=== PATIENT | male | born 1955 | race Caucasian/White ===

== ENCOUNTER 2017-05-09 10:19 | Observation (INO) | payer MEDICAID ==
[2017-05-09] MEDS ORDERED: Aspirin 325 MG Tab PO ONE (10:24)
[2017-05-09] MEDS ORDERED: Sodium Chloride 0.9% 10 ML Syringe FLUSH PRN ×2 (10:24→12:10)
[2017-05-09] MEDS ORDERED: Sodium Chloride 0.9% 2.5 ML Syringe FLUSH PRN ×2 (10:24→12:10)
--- NOTE | 2017-05-09 10:39 | EDM.PDOC ---
ED HPI GENERAL MEDICAL PROBLEM - General Chief Complaint: Neurological Problem Stated Complaint: MEMORY LOSS AND LT SHOULDER HURTS Time Seen by Provider: 05/09/17 10:35 Source of Information: Reports: Patient History Limitations: Reports: No Limitations - History of Present Illness INITIAL COMMENTS - FREE TEXT/NARRATIVE: HISTORY AND PHYSICAL: []61-year-old male presenting, brought in to ER by his boss, with alteration in his mental status History of Present Illness: []Yesterday and today patient has not been acting appropriately forgetful does not remember today's events Review of Systems: As per history of present illness and below otherwise all systems reviewed and negative. Past medical history: As per history of present illness and as reviewed below otherwise noncontributory. Surgical history: As per history of present illness and as reviewed below otherwise noncontributory. Social history: No reported history of drug or alcohol abuse. Family history: As per history of present illness and as reviewed below otherwise noncontributory. Physical exam: Alert gentleman answering questions somewhat difficultyshortness of breath HEENT: Atraumatic, normocehpalic, pupils reactive, negative for conjunctival pallor or scleral icterus, mucous membranes moist, throat clear, neck supple, nontender, trachea midline. Lungs: Clear to auscultation, breath sounds equal bilaterally, chest non tender. Heart: S1S2, regular, negative for clicks, rubs, or JVD. Abdomen: Soft, nondistended, nontender. Negative for masses or hepatossplenmegaly. Negative for costovertebral tenderness. Pelvis: Stable nontender. Genitourinary: Deferred. Rectal: Deferred Extremities: Atraumatic, negative for cords or calf pain. Neurovascular unremarkable. Neuro: Awake, alert, unable to state what day today is what day of the week it is or what month it is. He is able to follow directions. motor skills intact. Cranial nerves II through XII unremarkable. Cerebellum unremarkable. Motor and sensory unremarkable throughout. Exam nonfocal. Patient has his supervisor winding department from work here/he went to check on this worker today and had to help him sit up and brought him to emergency department for evaluation. Elevated CK and C-reactive protein Dr. Quigley has examined the patient and is in agreement with observation Dr. Angel has been notified of this patient for observation staus on telemetry Diagnostics: [CT head without CBC CMP chest x-ray EKG ammonia level urine drug screen] Therapeutics: []Aspirin 325 one by mouth Impression: [Altered mental status Rhabdomyolysis Plan: []Referred for observation /telemetry Definitive disposition and diagnosis as appropriate pending reevaluation and review of above. Onset: Sudden Duration: Day(s): (2) Location: Reports: Head left shoulder Pain Score (Numeric/FACES): 7 - Related Data Allergies Allergy/AdvReac Type Severity Reaction Status Date / Time No Known Allergies Allergy Verified 05/09/17 10:25 Home Meds: Home Meds Methylphenidate HCl [Ritalin] 10 mg PO TID 05/09/17 [History] Zaleplon [Sonata] 10 mg PO BEDTIME PRN 05/09/17 [History] Past Medical History Psychiatric History: Reports: ADHD - Past Surgical History Musculoskeletal Surgical History: Reports: Other (See Below) Other Musculoskeletal Surgeries/Procedures:: knee surgery Social & Family History - Family History Family Medical History: Noncontributory - Tobacco Use Smoking Status *Q: Current Every Day Smoker Years of Tobacco use: 20 Packs/Tins Daily: 0.5 - Alcohol Use Days Per Week of Alcohol Use: 7 Number of Drinks Per Day: 2 Total Drinks Per Week: 14 - Recreational Drug Use Recreational Drug Use: No ED ROS GENERAL - Review of Systems Review Of Systems: ROS reveals no pertinent complaints other than HPI. - Physical Exam Exam: See Below (see dictation) Course - Vital Signs Last Recorded V/S: Last Vital Signs Temp 36.8 C 05/09/17 10:26 Pulse 94 05/09/17 10:26 Resp 20 05/09/17 10:26 BP 153/106 H 05/09/17 10:26 Pulse Ox 95 05/09/17 10:26 - Orders/Labs/Meds Orders: Active Orders 24 hr Category Date Time Status Assess Neurological Status [RC] ASDIRECTED Care 05/09/17 10:24 Active Bedrest [RC] ASDIRECTED Care 05/09/17 10:24 Active Blood Glucose Check, Bedside [RC] STAT Care 05/09/17 10:24 Active Cardiac Monitoring [RC] . DIRECTED Care 05/09/17 10:24 Active EKG Documentation Completion [RC] STAT Care 05/09/17 10:24 Active EKG Documentation Completion [RC] STAT Care 05/09/17 10:35 Inactive Height and Weight [RC] UPON Care 05/09/17 10:24 Active Initiate Acute Stroke Protocol [RC] STAT Care 05/09/17 10:24 Active NIH Stroke Scale [RC] ASDIRECTED Care 05/09/17 10:24 Active Nursing Bedside Swallow Screen [RC] ASDIRECTED Care 05/09/17 10:24 Active Oxygen Therapy [RC] ASDIRECTED Care 05/09/17 10:24 Active Stroke Education, General [RC] Click to Edit Care 05/09/17 10:24 Active Vital Signs [RC] Q15M Care 05/09/17 10:24 Active ETOH [ETHANOL BLOOD MEDICAL] [CHEM] Stat Lab 05/09/17 12:03 Ordered Sodium Chloride 0.9% [Normal Saline] 1,000 ml Med 05/09/17 10:24 Active IV NOW Sodium Chloride 0.9% [Saline Flush] Med 05/09/17 10:24 Active 10 ml FLUSH ASDIRECTED PRN Sodium Chloride 0.9% [Saline Flush] Med 05/09/17 10:24 Active 2.5 ml FLUSH ASDIRECTED PRN Peripheral IV Insertion Adult [OM.PC] Stat Oth 05/09/17 10:24 Ordered Peripheral IV Insertion Adult [OM.PC] Stat Oth 05/09/17 10:24 Ordered Resuscitation Status Stat Resus Stat 05/09/17 10:24 Ordered Medication Orders Sodium Chloride (Normal Saline) 1,000 mls @ 125 mls/hr IV NOW STA Stop: 05/09/17 18:23 Last Infusion: 05/09/17 11:53 Dose: 999 mls/hr Admin: 05/09/17 10:56 Dose: 125 mls/hr Sodium Chloride (Saline Flush) 10 ml FLUSH ASDIRECTED PRN PRN Reason: Keep Vein Open Last Admin: 05/09/17 10:57 Dose: 10 ml Sodium Chloride (Saline Flush) 2.5 ml FLUSH ASDIRECTED PRN PRN Reason: Keep Vein Open Last Admin: 05/09/17 10:57 Dose: 2.5 ml Labs: Laboratory Tests 05/09/17 05/09/17 05/09/17 Range/Units 10:24 10:24 10:24 WBC 13.05 H (4.0-11.0) K/uL RBC 4.92 (4.50-5.90) M/uL Hgb 16.9 (13.0-17.0) g/dL Hct 46.9 (38.0-50.0) % MCV 95.3 (80.0-98.0) fL MCH 34.3 H (27.0-32.0) pg MCHC 36.0 (31.0-37.0) g/dL RDW Std Deviation 45.5 (28.0-62.0) fl RDW Coeff of [place] 13 (11.0-15.0) % Plt Count 167 (150-400) K/uL MPV 9.40 (7.40-12.00) fL Neut % (Auto) 81.8 H (48.0-80.0) % Lymph % (Auto) 8.8 L (16.0-40.0) % Phillips % (Auto) 9.2 (0.0-15.0) % Eos % (Auto) 0.1 (0.0-7.0) % Baso % (Auto) 0.1 (0.0-1.5) % Neut # (Auto) 10.7 H (1.4-5.7) K/uL Lymph # (Auto) 1.2 (0.6-2.4) K/uL Phillips # (Auto) 1.2 H (0.0-0.8) K/uL Eos # (Auto) 0.0 (0.0-0.7) K/uL Baso # (Auto) 0.0 (0.0-0.1) K/uL Nucleated RBC % 0.0 /100WBC Nucleated RBCs # 0 K/uL ESR (0-19) mm/hr INR 1.05 (0.86-1.11) APTT 31.5 H (18.6-31.3) SEC Sodium 133 L (136-146) mmol/L Potassium 4.3 (3.5-5.1) mmol/L Chloride 98 (98-110) mmol/L Carbon Dioxide 23 (21-31) mmol/L BUN 9 (6.0-23.0) mg/dL Creatinine 1.0 (0.6-1.5) mg/dL Est Cr Clr Drug Dosing 88.78 mL/min Estimated GFR (MDRD) > 60.0 ml/min Glucose 127 H (60-110) mg/dL POC Glucose (60-110) mg/dL Calcium 9.3 (8.8-10.8) mg/dL Total Bilirubin 1.9 H (0.1-1.5) mg/dL AST 118 H (5-40) IU/L ALT 61 H (8-54) IU/L Alkaline Phosphatase 76 (40-150) Ammonia (14-68) UG/DL Creatine Kinase 5412 H (9-236) IU/L CK-MB (CK-2) 39.5 H (0-6.6) ng/ml Troponin I < 0.10 (0.0-0.29) NG/ML C-Reactive Protein 9.54 H (0.0-0.5) mg/dL Total Protein 8.1 H (6.0-8.0) g/dL Albumin 4.8 (3.4-4.8) g/dL Globulin 3.3 (2.0-3.5) g/dL Albumin/Globulin Ratio 1.5 (1.3-2.8) TSH 3rd Generation 1.86 (0.47-5.0) uIU/mL Urine Color Urine Appearance Urine pH (5.0-8.0) Ur Specific [place] (1.001-1.035) Urine Protein (NEGATIVE) mg/dL Urine Glucose (UA) (NEGATIVE) mg/dL Urine Ketones (NEGATIVE) mg/dL Urine Occult Blood (NEGATIVE) Urine Nitrite (NEGATIVE) Urine Bilirubin (NEGATIVE) Urine Ictotest Urine Urobilinogen (<2.0) EU/dL Ur Leukocyte Esterase (NEGATIVE) Urine RBC (0-2/HPF) Urine WBC (0-5/HPF) Ur Epithelial Cells (NONE-FEW) Urine Bacteria (NEGATIVE) Urine Opiates Screen (NEGATIVE) Ur Oxycodone Screen (NEGATIVE) Urine Methadone Screen (NEGATIVE) Ur Barbiturates Screen (NEGATIVE) Ur Phencyclidine Scrn (NEGATIVE) Ur Amphetamine Screen (NEGATIVE) U Methamphetamines Scrn (NEGATIVE) U Benzodiazepines Scrn (NEGATIVE) U Cocaine Metab Screen (NEGATIVE) U Marijuana (THC) Screen (NEGATIVE) 05/09/17 05/09/17 05/09/17 Range/Units 10:24 10:24 10:44 WBC (4.0-11.0) K/uL RBC (4.50-5.90) M/uL Hgb (13.0-17.0) g/dL Hct (38.0-50.0) % MCV (80.0-98.0) fL MCH (27.0-32.0) pg MCHC (31.0-37.0) g/dL RDW Std Deviation (28.0-62.0) fl RDW Coeff of [place] (11.0-15.0) % Plt Count (150-400) K/uL MPV (7.40-12.00) fL Neut % (Auto) (48.0-80.0) % Lymph % (Auto) (16.0-40.0) % Phillips % (Auto) (0.0-15.0) % Eos % (Auto) (0.0-7.0) % Baso % (Auto) (0.0-1.5) % Neut # (Auto) (1.4-5.7) K/uL Lymph # (Auto) (0.6-2.4) K/uL Phillips # (Auto) (0.0-0.8) K/uL Eos # (Auto) (0.0-0.7) K/uL Baso # (Auto) (0.0-0.1) K/uL Nucleated RBC % /100WBC Nucleated RBCs # K/uL ESR 3 (0-19) mm/hr INR (0.86-1.11) APTT (18.6-31.3) SEC Sodium (136-146) mmol/L Potassium (3.5-5.1) mmol/L Chloride (98-110) mmol/L Carbon Dioxide (21-31) mmol/L BUN (6.0-23.0) mg/dL Creatinine (0.6-1.5) mg/dL Est Cr Clr Drug Dosing mL/min Estimated GFR (MDRD) ml/min Glucose (60-110) mg/dL POC Glucose 118 H (60-110) mg/dL Calcium (8.8-10.8) mg/dL Total Bilirubin (0.1-1.5) mg/dL AST (5-40) IU/L ALT (8-54) IU/L Alkaline Phosphatase (40-150) Ammonia 65 (14-68) UG/DL Creatine Kinase (9-236) IU/L CK-MB (CK-2) (0-6.6) ng/ml Troponin I (0.0-0.29) NG/ML C-Reactive Protein (0.0-0.5) mg/dL Total Protein (6.0-8.0) g/dL Albumin (3.4-4.8) g/dL Globulin (2.0-3.5) g/dL Albumin/Globulin Ratio (1.3-2.8) TSH 3rd Generation (0.47-5.0) uIU/mL Urine Color Urine Appearance Urine pH (5.0-8.0) Ur Specific [place] (1.001-1.035) Urine Protein (NEGATIVE) mg/dL Urine Glucose (UA) (NEGATIVE) mg/dL Urine Ketones (NEGATIVE) mg/dL Urine Occult Blood (NEGATIVE) Urine Nitrite (NEGATIVE) Urine Bilirubin (NEGATIVE) Urine Ictotest Urine Urobilinogen (<2.0) EU/dL Ur Leukocyte Esterase (NEGATIVE) Urine RBC (0-2/HPF) Urine WBC (0-5/HPF) Ur Epithelial Cells (NONE-FEW) Urine Bacteria (NEGATIVE) Urine Opiates Screen (NEGATIVE) Ur Oxycodone Screen (NEGATIVE) Urine Methadone Screen (NEGATIVE) Ur Barbiturates Screen (NEGATIVE) Ur Phencyclidine Scrn (NEGATIVE) Ur Amphetamine Screen (NEGATIVE) U Methamphetamines Scrn (NEGATIVE) U Benzodiazepines Scrn (NEGATIVE) U Cocaine Metab Screen (NEGATIVE) U Marijuana (THC) Screen (NEGATIVE) 05/09/17 05/09/17 Range/Units 11:09 11:09 WBC (4.0-11.0) K/uL RBC (4.50-5.90) M/uL Hgb (13.0-17.0) g/dL Hct (38.0-50.0) % MCV (80.0-98.0) fL MCH (27.0-32.0) pg MCHC (31.0-37.0) g/dL RDW Std Deviation (28.0-62.0) fl RDW Coeff of [place] (11.0-15.0) % Plt Count (150-400) K/uL MPV (7.40-12.00) fL Neut % (Auto) (48.0-80.0) % Lymph % (Auto) (16.0-40.0) % Phillips % (Auto) (0.0-15.0) % Eos % (Auto) (0.0-7.0) % Baso % (Auto) (0.0-1.5) % Neut # (Auto) (1.4-5.7) K/uL Lymph # (Auto) (0.6-2.4) K/uL Phillips # (Auto) (0.0-0.8) K/uL Eos # (Auto) (0.0-0.7) K/uL Baso # (Auto) (0.0-0.1) K/uL Nucleated RBC % /100WBC Nucleated RBCs # K/uL ESR (0-19) mm/hr INR (0.86-1.11) APTT (18.6-31.3) SEC Sodium (136-146) mmol/L Potassium (3.5-5.1) mmol/L Chloride (98-110) mmol/L Carbon Dioxide (21-31) mmol/L BUN (6.0-23.0) mg/dL Creatinine (0.6-1.5) mg/dL Est Cr Clr Drug Dosing mL/min Estimated GFR (MDRD) ml/min Glucose (60-110) mg/dL POC Glucose (60-110) mg/dL Calcium (8.8-10.8) mg/dL Total Bilirubin (0.1-1.5) mg/dL AST (5-40) IU/L ALT (8-54) IU/L Alkaline Phosphatase (40-150) Ammonia (14-68) UG/DL Creatine Kinase (9-236) IU/L CK-MB (CK-2) (0-6.6) ng/ml Troponin I (0.0-0.29) NG/ML C-Reactive Protein (0.0-0.5) mg/dL Total Protein (6.0-8.0) g/dL Albumin (3.4-4.8) g/dL Globulin (2.0-3.5) g/dL Albumin/Globulin Ratio (1.3-2.8) TSH 3rd Generation (0.47-5.0) uIU/mL Urine Color YELLOW Urine Appearance CLEAR Urine pH 6.0 (5.0-8.0) Ur Specific [place] >= 1.030 (1.001-1.035) Urine Protein TRACE (NEGATIVE) mg/dL Urine Glucose (UA) NEGATIVE (NEGATIVE) mg/dL Urine Ketones TRACE H (NEGATIVE) mg/dL Urine Occult Blood MODERATE (NEGATIVE) Urine Nitrite NEGATIVE (NEGATIVE) Urine Bilirubin SMALL H (NEGATIVE) Urine Ictotest NEGATIVE Urine Urobilinogen 1.0 (<2.0) EU/dL Ur Leukocyte Esterase NEGATIVE (NEGATIVE) Urine RBC 0-1 (0-2/HPF) Urine WBC 0-1 (0-5/HPF) Ur Epithelial Cells RARE (NONE-FEW) Urine Bacteria RARE (NEGATIVE) Urine Opiates Screen NEGATIVE (NEGATIVE) Ur Oxycodone Screen NEGATIVE (NEGATIVE) Urine Methadone Screen NEGATIVE (NEGATIVE) Ur Barbiturates Screen NEGATIVE (NEGATIVE) Ur Phencyclidine Scrn NEGATIVE (NEGATIVE) Ur Amphetamine Screen NEGATIVE (NEGATIVE) U Methamphetamines Scrn NEGATIVE (NEGATIVE) U Benzodiazepines Scrn NEGATIVE (NEGATIVE) U Cocaine Metab Screen NEGATIVE (NEGATIVE) U Marijuana (THC) Screen NEGATIVE (NEGATIVE) Meds: Medications Generic Name Dose Route Start Last Admin Trade Name Freq PRN Reason Stop Dose Admin Sodium Chloride 1,000 mls @ 125 mls/hr 05/09/17 10:24 05/09/17 11:53 Normal Saline IV 05/09/17 18:23 999 mls/hr NOW STA Infusion Sodium Chloride 10 ml 05/09/17 10:24 05/09/17 10:57 Saline Flush FLUSH 10 ml ASDIRECTED PRN Administration Keep Vein Open Sodium Chloride 2.5 ml 05/09/17 10:24 05/09/17 10:57 Saline Flush FLUSH 2.5 ml ASDIRECTED PRN Administration Keep Vein Open Discontinued Medications Generic Name Dose Route Start Last Admin Trade Name Freq PRN Reason Stop Dose Admin Aspirin 325 mg 05/09/17 10:24 05/09/17 10:57 Aspirin PO 05/09/17 10:25 325 mg ONETIME ONE Administration Departure - Departure Time of Disposition: 12:05 Disposition: Refer to Observation Condition: Fair Clinical Impression: Rhabdomyolysis - Discharge Information Forms: ED Department Discharge - My Orders Last 24 Hours: My Active Orders 05/09/17 10:24 Assess Neurological Status [RC] ASDIRECTED Bedrest [RC] ASDIRECTED Blood Glucose Check, Bedside [RC] STAT Cardiac Monitoring [RC] . DIRECTED EKG Documentation Completion [RC] STAT Height and Weight [RC] UPON Initiate Acute Stroke Protocol [RC] STAT NIH Stroke Scale [RC] ASDIRECTED Nursing Bedside Swallow Screen [RC] ASDIRECTED Oxygen Therapy [RC] ASDIRECTED Stroke Education, General [RC] Click to Edit Vital Signs [RC] Q15M Sodium Chloride 0.9% [Normal Saline] 1,000 ml IV NOW Sodium Chloride 0.9% [Saline Flush] 10 ml FLUSH ASDIRECTED PRN Sodium Chloride 0.9% [Saline Flush] 2.5 ml FLUSH ASDIRECTED PRN Peripheral IV Insertion Adult [OM.PC] Stat Peripheral IV Insertion Adult [OM.PC] Stat Resuscitation Status Stat 05/09/17 10:35 EKG Documentation Completion [RC] STAT 05/09/17 12:03 ETOH [ETHANOL BLOOD MEDICAL] [CHEM] Stat - Assessment/Plan Last 24 Hours: My Active Orders 05/09/17 10:24 Assess Neurological Status [RC] ASDIRECTED Bedrest [RC] ASDIRECTED Blood Glucose Check, Bedside [RC] STAT Cardiac Monitoring [RC] . DIRECTED EKG Documentation Completion [RC] STAT Height and Weight [RC] UPON Initiate Acute Stroke Protocol [RC] STAT NIH Stroke Scale [RC] ASDIRECTED Nursing Bedside Swallow Screen [RC] ASDIRECTED Oxygen Therapy [RC] ASDIRECTED Stroke Education, General [RC] Click to Edit Vital Signs [RC] Q15M Sodium Chloride 0.9% [Normal Saline] 1,000 ml IV NOW Sodium Chloride 0.9% [Saline Flush] 10 ml FLUSH ASDIRECTED PRN Sodium Chloride 0.9% [Saline Flush] 2.5 ml FLUSH ASDIRECTED PRN Peripheral IV Insertion Adult [OM.PC] Stat Peripheral IV Insertion Adult [OM.PC] Stat Resuscitation Status Stat 05/09/17 10:35 EKG Documentation Completion [RC] STAT 05/09/17 12:03 ETOH [ETHANOL BLOOD MEDICAL] [CHEM] Stat
--- NOTE | 2017-05-09 10:52 | CT ---
EXAMINATION: Non contrast CT head. Coronal and sagittal reformats. HISTORY: Stroke code FINDINGS: No evidence of intra or extra axial hemorrhage, mass, midline shift, hydrocephalus or edema. No hypoattenuation changes in the major vascular territories to suggest acute infarct. No abnormal intracranial calcifications are detected. No evidence of substantial vascular calcificat ions. Moderate mucosal thickening within the right maxillary sinus. Mastoid air cells are clear. Orbits and globes are symmetric. Pituitary fossa appears unremarkable. The calvarium is intact. No evidence of skull fracture. IMPRESSION: 1. No acute intracranial findings. 2. Mucosal thickening within the right maxillary sinus. Above findings were called to the ER at 10:50 AM.
[2017-05-09] MEDS: Sodium Chloride 0.9% 1,000 ML IV STA ×2 (10:56→19:06)
[2017-05-09 11:06] LABS: CHLORIDE,CL 98 mmol/L (98-110); SODIUM,NA 133 mmol/L (136-146)
--- NOTE | 2017-05-09 11:51 | CR ---
EXAMINATION: Left shoulder HISTORY: Pain COMPARISON: None TECHNIQUE: 3 views FINDINGS/IMPRESSION: There is a posterior dislocation of the humeral head with a large reverse Hill S achs lesion. Bone mineralization is otherwise normal. Mild to moderate acromioclavicular osteoarthrit ic changes.
--- NOTE | 2017-05-09 11:56 | CR ---
EXAMINATION: Portable chest radiograph. HISTORY: Stroke code. FINDINGS: The trachea is midline. The cardiomediastinal silhouette is within normal limits. Minimal left basila r atelectasis/infiltrate. No pleural effusion or pneumothorax. Please see shoulder report for findings. IMPRESSION: Minimal left basilar atelectasis/infiltrate.
--- NOTE | 2017-05-09 14:23 | PCM.HP ---
H&P History of Present Illness - General Date of Service: 05/09/17 Admit Problem/Dx: Admission Diagnosis/Problem Admission Diagnosis/Problem Altered mental status Source of Information: Patient, Other (boss at work) History Limitations: Reports: No Limitations - History of Present Illness Initial Comments - Free Text/Narative: This is a 61 year old male with a past history of ADHD that presents today to the ER with a chief complaint of confusion. As per the patient, he tells me that for the past 2 days his friends have been telling him that he has been having memory issues and showing signs of confusion. He tells me that he lives in [place] and has drove up to [place] to work at an [employer] for the past few days. He tells me that for the last few days he has been getting minimal sleep and its been a taxing job for him with long hours. He is unaware of what may be causing his confusion. He tells me hes never had anything like this before. When I evaluated him in the ER, he told me that he feels much better now than he did the past couple of days. I asked if I could speak to one of his co- workers who could provide more of his story and he gave me his phone to speak to his boss, Fausto. As per Fausto, he tells me that since yesterday morning at around 6AM, Nigel has been having difficulty at work in terms of getting his work done on time. He was also supposed to come to work but didn't. He tells me that his co-worker, Arturo, noticed at around 10pm that the patient was complaining of feeling weak and needed help getting up out of his seat. Today around 6am, he was reported by his coworkers to have no idea who anyone was and why he was there. Talking to the patient now, he is awake, alert, and oriented and answering all questions appropriately. Hes complaining of left shoulder pain which shoulder x- ray indicated a posterior dislocation. The shoulder was reduced by ER physician and put in a sling. After this, patient said that his shoulder has felt much better. When asked about how this could have happened, he tells me he has had left shoulder pain for over 6 months that he attributed to playing sports at a younger age. He didnt realize it was dislocated. I also noticed that the patient has an obviously red and irritated left eye. When asked about this, he is unaware of how this happened. However, he denies any blurry vision or pain. ER Course: CBC - leukocytosis PTT - 31.5 Sodium - 133 Glucose 118 AST 118 ALT 61 CK 5412 CKB 39.5 CRP 9.5 Ketonuria negative drug tox, negative alcohol CT Head negative CXR indicates minimal left basilar atelectasis/infiltrate left shoulder Pain Score (Numeric/FACES): 7 - Related Data Allergies/Adverse Reactions: Allergies Allergy/AdvReac Type Severity Reaction Status Date / Time No Known Allergies Allergy Verified 05/09/17 10:25 Home Medications: Home Meds Methylphenidate HCl [Ritalin] 10 mg PO TID 05/09/17 [History] Zaleplon [Sonata] 10 mg PO BEDTIME PRN 05/09/17 [History] Past Medical History Psychiatric History: Reports: ADHD - Past Surgical History Musculoskeletal Surgical History: Reports: Other (See Below) Other Musculoskeletal Surgeries/Procedures:: knee surgery Social & Family History - Family History Family Medical History: Noncontributory - Tobacco Use Smoking Status *Q: Current Every Day Smoker Years of Tobacco use: 20 Packs/Tins Daily: 0.5 - Alcohol Use Days Per Week of Alcohol Use: 7 Number of Drinks Per Day: 2 Total Drinks Per Week: 14 - Recreational Drug Use Recreational Drug Use: No H&P Review of Systems - Review of Systems: Review Of Systems: See Below General: Reports: Weakness HEENT: Reports: No Symptoms Pulmonary: Reports: No Symptoms Cardiovascular: Reports: No Symptoms Gastrointestinal: Reports: No Symptoms Genitourinary: Reports: No Symptoms Musculoskeletal: Reports: Shoulder Pain Skin: Reports: No Symptoms Psychiatric: Reports: Confusion Neurological: Reports: Confusion. Denies: Dizziness, Headache, Seizure, Syncope , Tingling, Tremors, Trouble Speaking, Difficulty Walking, Weakness Exam - Exam Exam: See Below - Vital Signs Vital Signs: Last Vital Signs Temp 36.6 C 05/09/17 13:35 Pulse 91 05/09/17 13:35 Resp 18 05/09/17 13:35 BP 139/82 05/09/17 13:35 Pulse Ox 97 05/09/17 13:35 Weight: 102.058 kg - Exam Quality Assessment: Supplemental Oxygen General: Alert, Oriented HEENT: Hearing Intact, Mucosa Moist & [place], Nares Patent, TMs Clear, Glasses, Other (left eye conjunctival injection with no drainage. fundoscopic exam reveals no papilledema EOMI) Neck: Supple, Trachea Midline Lungs: Clear to Auscultation, Normal Respiratory Effort Cardiovascular: Regular Rate, Regular Rhythm GI/Abdominal Exam: Normal Bowel Sounds, Soft Back Exam: Normal Inspection, Full Range of Motion, CVA Tenderness (L), CVA Tenderness (R). No: Vertebral Tenderness Extremities: Normal Inspection, Normal Range of Motion, Non-Tender, No Pedal Edema Peripheral Pulses: 3+: Posterior Tibial (L), Posterior Tibial (R) Skin: Warm, Dry Neurological: Cranial Nerves Intact Neuro Extensive - Mental Status: Alert, Oriented x3, Normal Mood/Affect, Normal Cognition, Memory Intact Neuro Extensive - Motor, Sensory, Reflexes: CN II-XII Intact, Normal Gait, Normal Reflexes. No: Tongue Deviation (L), Tongue Deviation (R), Dysarthria, Receptive Aphasia, Expressive Aphasia, Facial palsy (L), Abnormal Finger to Nose , Abnormal Heel to [place] Psychiatric: Alert, Normal Affect, Normal Mood - Patient Data Result Diagrams: 05/09/17 10:24 05/09/17 10:24 *Q Meaningful Use (ADM) - VTE *Q VTE Criteria *Q: - Stroke *Q Stroke Criteria *Q: - AMI *Q AMI Criteria *Q: Problem List Initiated/Reviewed/Updated: Yes Orders Last 24hrs: Active Orders 24 hr Category Date Time Status Antiembolic Devices [RC] PER UNIT ROUTINE Care 05/09/17 14:11 Active Oxygen Therapy [RC] PRN Care 05/09/17 14:09 Active Up ad Destinee [RC] ASDIRECTED Care 05/09/17 14:08 Active VTE/DVT Education [RC] PER UNIT ROUTINE Care 05/09/17 14:09 Active Vital Signs [RC] Q4H Care 05/09/17 14:09 Active Regular Diet [DIET] Diet 05/09/17 Dinner Active Abdomen Ltd [US] Routine Exams 05/09/17 14:11 Ordered BASIC METABOLIC PANEL,BMP [CHEM] AM Lab 05/10/17 05:11 Ordered C-REACTIVE PROTEIN [CHEM] AM Lab 05/10/17 05:11 Ordered CBC WITH AUTO DIFF [HEME] AM Lab 05/10/17 05:11 Ordered CREATINE KINASE,CK [CHEM] AM Lab 05/10/17 05:11 Ordered HEPATITIS PANEL, ACUTE [REF] Routine Lab 05/09/17 14:12 Ordered Sequential Compression Device [OM.PC] Per Unit Routine Oth 05/09/17 14:10 Ordered Medication Orders Sodium Chloride (Normal Saline) 1,000 mls @ 175 mls/hr IV NOW STA Stop: 05/09/17 16:06 Last Infusion: 05/09/17 11:53 Dose: 999 mls/hr Admin: 05/09/17 10:56 Dose: 125 mls/hr Sodium Chloride (Saline Flush) 10 ml FLUSH ASDIRECTED PRN PRN Reason: Keep Vein Open Last Admin: 05/09/17 10:57 Dose: 10 ml Sodium Chloride (Saline Flush) 2.5 ml FLUSH ASDIRECTED PRN PRN Reason: Keep Vein Open Last Admin: 05/09/17 10:57 Dose: 2.5 ml Sodium Chloride (Saline Flush) 10 ml FLUSH ASDIRECTED PRN PRN Reason: Keep Vein Open Sodium Chloride (Saline Flush) 2.5 ml FLUSH ASDIRECTED PRN PRN Reason: Keep Vein Open Assessment/Plan Comment:: Assessment: #1. Altered mental status #2. Rhabdomyolysis #3. Elevated LFT #4. Mild leukocytosis #5. mild hyponatremia #6. elevated CRP #7. Elevated CK-MB #8. ketonuria #9. negative drug tox Plan: #1. Admit to the floor as an inpatient. Vital signs per floor routine. Full code #2. IVNS 250ml/hr for rhabdomyolysis. Q6h CK check to see the down trend. #3. RUQ US + Hepatitis Panel for transaminitis #4. IV Levaquin for community acquired pneumonia #5. MRI brain w/ contrast to rule out ischemia #6. Cbc, bmp, crp for tomorrow Am
[2017-05-09] MEDS ORDERED: Sodium Chloride 0.9% 250 ML IV SCH (15:00)
[2017-05-09] MEDS: Levofloxacin/Dextrose 5%-Water 750 MG in Premix Bag 1 BAG IV SCH (15:13)
--- NOTE | 2017-05-09 15:55 | PCM.CONS ---
H&P History of Present Illness - General Admit Problem/Dx: Admission Diagnosis/Problem Admission Diagnosis/Problem Altered mental status - History of Present Illness Initial Comments - Free Text/Narative: He was noted to be confused by coworkers. He was brought to ED by his boss because he has been confused for the last 2 days. He then missed a day of work. In the ED, he was not oriented to place or time. He does not recall missing a day of work. He reports that he has been under stress as he worked 6 weeks straight, senior talent management consultant , had 3 days off at home in [place] then came here. When asked about shoulder, he said it has been out for a year. He does not know what happened to his left eye. He recalls no trauma. He is a smoker. He drinks 3-4 drinks / night when days off, non during work days. CT head 05/09/2017 normal Labs CRP 9.54, AST 118, ALT 61, bili 1.9, WBC 13.05, TSH normal, UA trace ketones, small bilirubin, Utox negative, Na 133 CXR showed left lobe atelectasis vs. infiltrate left shoulder Pain Score (Numeric/FACES): 7 - Related Data Allergies/Adverse Reactions: Allergies Allergy/AdvReac Type Severity Reaction Status Date / Time No Known Allergies Allergy Verified 05/09/17 10:25 Home Medications: Home Meds Methylphenidate HCl [Ritalin] 10 mg PO TID 05/09/17 [History] Zaleplon [Sonata] 10 mg PO BEDTIME PRN 05/09/17 [History] Past Medical History HEENT History: Reports: None Cardiovascular History: Reports: None Respiratory History: Reports: Asthma, Bronchitis, Recurrent, Pneumonia, Recurrent, Sleep Apnea Gastrointestinal History: Reports: None Genitourinary History: Reports: None Musculoskeletal History: Reports: Fracture Other Musculoskeletal History: Fractured collar bone Neurological History: Reports: None Psychiatric History: Reports: ADHD Endocrine/Metabolic History: Reports: None Hematologic History: Reports: None Immunologic History: Reports: None Oncologic (Cancer) History: Reports: None Dermatologic History: Reports: None - Infectious Disease History Infectious Disease History: Reports: Chicken Pox, Influenza - Past Surgical History Musculoskeletal Surgical History: Reports: Other (See Below) Other Musculoskeletal Surgeries/Procedures:: knee surgery Social & Family History - Family History Family Medical History: Noncontributory - Tobacco Use Smoking Status *Q: Current Every Day Smoker Years of Tobacco use: 20 Packs/Tins Daily: 0.5 Used Tobacco, but Quit: No Second Hand Smoke Exposure: Yes - Caffeine Use Caffeine Use: Reports: Coffee - Alcohol Use Days Per Week of Alcohol Use: 7 Number of Drinks Per Day: 2 Total Drinks Per Week: 14 Date of Last Drink: 05/09/17 Time of Last Drink: 16:00 - Recreational Drug Use Recreational Drug Use: No H&P Review of Systems - Review of Systems: Review Of Systems: See Below General: Reports: No Symptoms HEENT: Reports: No Symptoms Pulmonary: Reports: No Symptoms Cardiovascular: Reports: No Symptoms Gastrointestinal: Reports: No Symptoms Genitourinary: Reports: No Symptoms Musculoskeletal: Reports: Arm Pain Neurological: Reports: Confusion Exam - Exam Exam: See Below - Vital Signs Vital Signs: Last Vital Signs Temp 36.6 C 05/09/17 13:35 Pulse 91 05/09/17 13:35 Resp 18 05/09/17 13:35 BP 139/82 05/09/17 13:35 Pulse Ox 97 05/09/17 13:35 Weight: 102.058 kg - Exam Physical Exam Comments:: Constitutional: No acute distress Neurological: Mental Status: Level of consciousness: Awake, alert. Orientation: Oriented to person, place, year and situation Concentration/Attention Span: Spells World forward and back wards Comprehension/Praxis: Able to perform two step commands Fund of Knowledge/memory: Reg 3/3, recall 0/3 Language: Naming and repetition intact Cranial Nerves: Pupils round reactive to light. . . Visual camejo intact. Gaze conjugate, EOMI. Sensation intact and symmetric to light touch. Facial strength is full and symmetric. Palate elevates symmetrically. Normal shrug bilaterally. Tongue protrudes midline Motor: No drift. Power is 5/5 throughout proximal and distal muscles except left proximal limb not tested. . Sensation: Sensation is intact to pinprick, vibratory sense Deep tendon reflexes: 2+ except ankle jerks trace Plantar responses are flexor bilaterally. Coordination: Finger to nose intact. Heel to jolley intact. Gait: Took 3-4 steps (hindered by IV), stable HEENT: Eyes: hemorrhage left eye, mild bruising inferior to orbit. Mouth: moist mucus membranes Cardiovascular: RRR Respiratory: clear lungs GI: non tender Musculoskeletal: left shoulder tender - Patient Data Lab Results Last 24 hrs: Laboratory Results - last 24 hr 05/09/17 Range/Units 14:30 Creatine Kinase 4623 H (9-236) IU/L Result Diagrams: 05/09/17 10:24 05/09/17 10:24 Consult PN Assessment/Plan Problem List Initiated/Reviewed/Updated: Yes My Orders Last 24 Hours: Altered mental status: Work up notable for mild leukocytosis, possible pneumonia , transaminitis. Altered mental status likely infectious / toxic metabolic. No focal deficits noted to suggest ischemia, but mental status does not improve , MRI brain may be considered. No seizure activity reported. No headache, nuchal rigidity to suggest [employer] infection Elevated CK / rhabdomyolisis: Possible related to dislocated shoulder. I agree with fluids and trending CK.
[2017-05-09] MEDS ORDERED: LORazepam 1 MG Tab PO ONE (18:04)
[2017-05-09] MEDS ORDERED: Sodium Chloride 0.9% 1,000 ML IV SCH (18:30)
[2017-05-09] MEDS ORDERED: Gadobenate Dimeglumine 529 MG/ML 20 ML SDV IVPUSH STA (21:19)
[2017-05-10] MEDS: Sodium Chloride 0.9% 1,000 ML IV SCH ×6 (02:14→23:33)
[2017-05-10 03:32] LABS: CHLORIDE,CL 108 mmol/L (98-110); SODIUM,NA 137 mmol/L (136-146)
[2017-05-10] MEDS ORDERED: Calcium Carbonate 500 MG Tab.Chew PO ONE (07:15)
--- NOTE | 2017-05-10 09:46 | PCM.PN ---
- General Info Date of Service: 05/10/17 Subjective Update: Alert and oriented x3 this am. Would like to go home but secondary to MRI finding will need more imaging. Eating and eliminating without difficulty. No chest pain, palpitations, shortness of breath, nausea, vomiting, diarrhea, focal neurologic deficits. Functional Status: Reports: Pain Controlled, Tolerating Diet - Review of Systems General: Denies: Fever, Weakness, Fatigue HEENT: Denies: Headaches, Visual Changes Pulmonary: Denies: Shortness of Breath, Hemoptysis Cardiovascular: Denies: Chest Pain, Palpitations, Edema Gastrointestinal: Denies: Abdominal Pain, Nausea, Vomiting Genitourinary: Denies: Dysuria, Hematuria Musculoskeletal: Denies: Neck Pain, Leg Pain Skin: Denies: Cyanosis Neurological: Denies: Confusion, Dizziness, Headache Psychiatric: Denies: Confusion - Patient Data Vitals - Most Recent: Last Vital Signs Temp 98.3 F 05/10/17 08:20 Pulse 84 05/10/17 08:20 Resp 84 H 05/10/17 08:20 BP 128/87 05/10/17 08:20 Pulse Ox 20 L 05/10/17 08:20 Weight - Most Recent: 102.058 kg I&O - Last 24 Hours: Intake & Output 05/09/17 05/10/17 05/10/17 22:59 06:59 14:59 Intake Total 400 2250 Balance 400 2250 Lab Results Last 24 Hours: Laboratory Results - last 24 hr 05/09/17 05/09/17 05/10/17 Range/Units 14:30 21:43 02:59 WBC 10.20 (4.0-11.0) K/uL RBC 4.22 L (4.50-5.90) M/uL Hgb 14.2 (13.0-17.0) g/dL Hct 40.7 (38.0-50.0) % MCV 96.4 (80.0-98.0) fL MCH 33.6 H (27.0-32.0) pg MCHC 34.9 (31.0-37.0) g/dL RDW Std Deviation 46.7 (28.0-62.0) fl RDW Coeff of [place] 14 (11.0-15.0) % Plt Count 145 L (150-400) K/uL MPV 9.40 (7.40-12.00) fL Neut % (Auto) 74.0 (48.0-80.0) % Lymph % (Auto) 13.1 L (16.0-40.0) % Cass % (Auto) 12.7 (0.0-15.0) % Eos % (Auto) 0.1 (0.0-7.0) % Baso % (Auto) 0.1 (0.0-1.5) % Neut # (Auto) 7.5 H (1.4-5.7) K/uL Lymph # (Auto) 1.3 (0.6-2.4) K/uL Cass # (Auto) 1.3 H (0.0-0.8) K/uL Eos # (Auto) 0.0 (0.0-0.7) K/uL Baso # (Auto) 0.0 (0.0-0.1) K/uL Nucleated RBC % 0.0 /100WBC Nucleated RBCs # 0 K/uL Sodium (136-146) mmol/L Potassium (3.5-5.1) mmol/L Chloride (98-110) mmol/L Carbon Dioxide (21-31) mmol/L BUN (6.0-23.0) mg/dL Creatinine (0.6-1.5) mg/dL Est Cr Clr Drug Dosing mL/min Estimated GFR (MDRD) ml/min Glucose (60-110) mg/dL Calcium (8.8-10.8) mg/dL Creatine Kinase 4623 H 3689 H (9-236) IU/L C-Reactive Protein (0.0-0.5) mg/dL 05/10/17 05/10/17 Range/Units 02:59 02:59 WBC (4.0-11.0) K/uL RBC (4.50-5.90) M/uL Hgb (13.0-17.0) g/dL Hct (38.0-50.0) % MCV (80.0-98.0) fL MCH (27.0-32.0) pg MCHC (31.0-37.0) g/dL RDW Std Deviation (28.0-62.0) fl RDW Coeff of [place] (11.0-15.0) % Plt Count (150-400) K/uL MPV (7.40-12.00) fL Neut % (Auto) (48.0-80.0) % Lymph % (Auto) (16.0-40.0) % Cass % (Auto) (0.0-15.0) % Eos % (Auto) (0.0-7.0) % Baso % (Auto) (0.0-1.5) % Neut # (Auto) (1.4-5.7) K/uL Lymph # (Auto) (0.6-2.4) K/uL Cass # (Auto) (0.0-0.8) K/uL Eos # (Auto) (0.0-0.7) K/uL Baso # (Auto) (0.0-0.1) K/uL Nucleated RBC % /100WBC Nucleated RBCs # K/uL Sodium 137 (136-146) mmol/L Potassium 4.0 (3.5-5.1) mmol/L Chloride 108 (98-110) mmol/L Carbon Dioxide 20 L (21-31) mmol/L BUN 10 (6.0-23.0) mg/dL Creatinine 0.8 (0.6-1.5) mg/dL Est Cr Clr Drug Dosing 110.97 mL/min Estimated GFR (MDRD) > 60.0 ml/min Glucose 111 H (60-110) mg/dL Calcium 8.0 L (8.8-10.8) mg/dL Creatine Kinase 3113 H (9-236) IU/L C-Reactive Protein 13.08 H (0.0-0.5) mg/dL Med Orders - Current: Current Medications Levofloxacin/Dextrose 750 mg/ (Premix) 150 mls @ 100 mls/hr IV Q24H [facility] Last Admin: 05/09/17 15:13 Dose: 100 mls/hr Sodium Chloride (Normal Saline) 1,000 mls @ 250 mls/hr IV ASDIRECTED BE Last Admin: 05/10/17 05:42 Dose: 250 mls/hr Methylphenidate 10mg 1 each PO TID BE Last Admin: 05/10/17 08:51 Dose: Not Given Sodium Chloride (Saline Flush) 10 ml FLUSH ASDIRECTED PRN PRN Reason: Keep Vein Open Last Admin: 05/09/17 10:57 Dose: 10 ml Sodium Chloride (Saline Flush) 2.5 ml FLUSH ASDIRECTED PRN PRN Reason: Keep Vein Open Last Admin: 05/09/17 10:57 Dose: 2.5 ml Sodium Chloride (Saline Flush) 10 ml FLUSH ASDIRECTED PRN PRN Reason: Keep Vein Open Sodium Chloride (Saline Flush) 2.5 ml FLUSH ASDIRECTED PRN PRN Reason: Keep Vein Open Zaleplon (Sonata) 10 mg PO BEDTIME PRN PRN Reason: Insomnia Discontinued Medications Aspirin (Aspirin) 325 mg PO ONETIME ONE Stop: 05/09/17 10:25 Last Admin: 05/09/17 10:57 Dose: 325 mg Calcium Carbonate/Glycine (Tums) 1,000 mg PO ONETIME ONE Stop: 05/10/17 07:16 Last Admin: 05/10/17 08:07 Dose: 1,000 mg Gadobenate Dimeglumine (Multihance) 20 ml IVPUSH ONETIME STA Stop: 05/09/17 21:20 Last Admin: 05/09/17 21:20 Dose: 14 ml Sodium Chloride (Normal Saline) 1,000 mls @ 250 mls/hr IV NOW STA Stop: 05/09/17 14:23 Last Admin: 05/09/17 19:06 Dose: 999 mls/hr Sodium Chloride (Normal Saline) 250 mls @ 250 mls/hr IV ASDIRECTED BE Last Admin: 05/09/17 15:13 Dose: 250 mls/hr Sodium Chloride (Normal Saline) 1,000 mls @ 250 mls/hr IV ASDIRECTED BE Lorazepam (Ativan) 1 mg PO ONETIME ONE Stop: 05/09/17 18:05 Last Admin: 05/09/17 19:14 Dose: 1 mg - Exam Quality Assessment: DVT Prophylaxis General: Alert, Oriented, Cooperative, No Acute Distress HEENT: Pupils Equal, Pupils Reactive, EOMI, Mucous Membr. Moist/[place] Neck: Supple, Trachea Midline Lungs: Clear to Auscultation, Normal Respiratory Effort Cardiovascular: Regular Rate, Regular Rhythm, Murmurs GI/Abdominal Exam: Normal Bowel Sounds, Soft, Non-Tender, No Organomegaly Back Exam: Normal Inspection Extremities: Normal Inspection, Non-Tender, No Pedal Edema, Normal Capillary Refill Peripheral Pulses: 2+: Radial (L), Radial (R), Posterior Tibial (L), Posterior Tibial (R), Dorsalis Pedis (L), Dorsalis Pedis (R) Skin: Warm, Dry, Intact Neurological: No New Focal Deficit Psy/Mental Status: Alert, Normal Affect, Normal Mood - Problem List & Annotations (1) Altered mental status SNOMED Code(s): 812230216 Code(s): R41.82 - ALTERED MENTAL STATUS, UNSPECIFIED Status: Resolved Current Visit: Yes Qualifiers: Altered mental status type: disorientation Qualified Code(s): R41.0 - Disorientation, unspecified (2) Rhabdomyolysis SNOMED Code(s): 471018973 Code(s): M62.82 - RHABDOMYOLYSIS Status: Acute Priority: High Current Visit: Yes Qualifiers: Rhabdomyolysis type: traumatic Encounter type: subsequent encounter Qualified Code(s): T79.6XXD - Traumatic ischemia of muscle, subsequent encounter (3) Dislocation of left shoulder joint SNOMED Code(s): 219580785 Code(s): S43.005A - UNSPECIFIED DISLOCATION OF LEFT SHOULDER JOINT, INIT ENCNTR Status: Resolved Priority: Low Current Visit: Yes Qualifiers: Encounter type: subsequent encounter Qualified Code(s): S43.005D - Unspecified dislocation of left shoulder joint, subsequent encounter (4) CAP (community acquired pneumonia) SNOMED Code(s): 514210377 Code(s): J18.9 - PNEUMONIA, UNSPECIFIED ORGANISM Status: Suspected Priority: High Current Visit: Yes Qualifiers: Laterality: left Lung location: lower lobe of lung Qualified Code(s): J18.1 - Lobar pneumonia, unspecified organism - Problem List Review Problem List Initiated/Reviewed/Updated: Yes - My Orders Last 24 Hours: My Active Orders 05/09/17 12:25 Telemetry Monitoring [Cardiac Monitoring] [RC] . DIRECTED 05/09/17 20:38 Zaleplon [Sonata] 10 mg PO BEDTIME PRN 05/09/17 22:00 Patient's Own Medication [Ptom] 1 each PO TID 05/10/17 01:30 Sodium Chloride 0.9% [Normal Saline] 1,000 ml IV ASDIRECTED 05/10/17 07:19 VL Duplex Carotid Comp [US] Routine 05/10/17 08:51 CREATINE KINASE,CK [CHEM] Routine 05/10/17 15:00 CREATINE KINASE,CK [CHEM] Routine - Plan Plan:: 7-year-old male admitted 05/09/17 for altered mental status found to have rhabdomyolysis and leukocytosis with no significant past medical history. AMS: Dr. Olivera, neurologist, did see patient. See her note for further details. 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 There was also moderate right maxillary sinus mucosal thickening. Secondary to these findings we will get a carotid ultrasound as well as echocardiogram to search for possible embolic source. AMS seems to have improved but patient does have ecchymosis under the left eye with hyperemic injection to that eye as if he sustained trauma which he denies. He does admit to drinking but not on a regular basis. Negative drug tox screen. Plan to monitor mental status as well as get above exams. Will need follow-up with neurology. Rhabdomyolysis: Improving CK 3000 this a.m. down from 4623 most likely from previously dislocated shoulder. Will continue IVF resus at 250 ml/hr and monitor. Leukocytosis/CAP: Resolved but Left basilar infiltrate on CXR representing suspected community acquired pneumonia. We'll continue levofloxacin 750 mg day 2. Elevated LFTs: Most likely secondary to fatty liver from EtOH. Improving with IVF resus. Ultrasound right upper quadrant revealed increased echogenicity of the liver parenchyma, likely related to fatty infiltration. Patient is status post cholecystectomy, there was suboptimal visualization of the pancreas, presumably related bowel gas. VTE proph: SCD, Heparin Dispo: 1-2 days.
[2017-05-10] MEDS: Heparin Sodium 5,000 Units/ML Vial SUBCUT SCH ×2 (10:57→17:07)
[2017-05-10] MEDS: Levofloxacin/Dextrose 5%-Water 750 MG in Premix Bag 1 BAG IV SCH (15:46)
[2017-05-10] MEDS ORDERED: Acetaminophen/HYDROcodone 325-5 MG Tab PO PRN (18:53)
[2017-05-10] MEDS ORDERED: Acetaminophen 325 MG Tab PO PRN (18:53)
[2017-05-11] MEDS: Heparin Sodium 5,000 Units/ML Vial SUBCUT SCH ×2 (02:17→12:10)
[2017-05-11] MEDS: Sodium Chloride 0.9% 1,000 ML IV SCH ×2 (04:02→08:21)
--- NOTE | 2017-05-11 06:59 | PCM.DCSUM1 ---
Discharge Summary - Hospital Course HPI Initial Comments: 61-year-old male admitted 05/09/17 for altered mental status found to have rhabdomyolysis and leukocytosis with no significant past medical history. Brief History: Patient intially was brought to the ED by coworkers that stated that he was disorientated on the morning of admission and did not even know his own name. They state that he had seemed confused for the last 2 days and then had missed a day of work. Initially in the ED he was not oriented to place or time. He also did not remember missing a day of work. When questioned he reported that for the past 2 days his friends had been telling him that he was having memory issues and showing signs of confusion. He lives in [place] and has drove up to [place] to work at an [employer] for the past few days. The last few days he has been getting minimal sleep and its been a taxing job for him with long hours. He was unaware of what may be causing his confusion and reported that nothing like this had happened before to him. - Discharge Data Discharge Date: 05/11/17 Discharge Disposition: Home, Self-Care 01 Condition: Good - Discharge Diagnosis/Problem(s) (1) Altered mental status SNOMED Code(s): 655223092 ICD Code: R41.82 - ALTERED MENTAL STATUS, UNSPECIFIED Status: Resolved Current Visit: Yes Qualifiers: Altered mental status type: disorientation Qualified Code(s): R41.0 - Disorientation, unspecified (2) Rhabdomyolysis SNOMED Code(s): 388595712 ICD Code: M62.82 - RHABDOMYOLYSIS Status: Resolved Priority: High Current Visit: Yes Qualifiers: Rhabdomyolysis type: traumatic Encounter type: subsequent encounter Qualified Code(s): T79.6XXD - Traumatic ischemia of muscle, subsequent encounter (3) Dislocation of left shoulder joint SNOMED Code(s): 147754958 ICD Code: S43.005A - UNSPECIFIED DISLOCATION OF LEFT SHOULDER JOINT, INIT ENCNTR Status: Resolved Priority: Low Current Visit: Yes Qualifiers: Encounter type: subsequent encounter Qualified Code(s): S43.005D - Unspecified dislocation of left shoulder joint, subsequent encounter (4) CAP (community acquired pneumonia) SNOMED Code(s): 446979832 ICD Code: J18.9 - PNEUMONIA, UNSPECIFIED ORGANISM Status: Suspected Priority: High Current Visit: Yes Qualifiers: Laterality: left Lung location: lower lobe of lung Qualified Code(s): J18.1 - Lobar pneumonia, unspecified organism - Patient Instructions Diet: Heart Healthy Diet Activity: Rest and Relax Today Driving: Do Not Drive Showering/Bathing: May Shower Notify Provider of: Fever, Increased Pain, Swelling and Redness, Nausea and/or Vomiting - Discharge Plan Prescriptions/Med Rec: Aspirin [Adult Low Dose Aspirin EC] 81 mg PO DAILY #12 tablet. Levofloxacin [Levaquin] 750 mg PO DAILY #5 tablet Home Medications: Home Meds Methylphenidate HCl [Ritalin] 10 mg PO TID 05/09/17 [History] Zaleplon [Sonata] 10 mg PO BEDTIME PRN 05/09/17 [History] Aspirin [Adult Low Dose Aspirin EC] 81 mg PO DAILY #12 tablet. 05/11/17 [Rx] Levofloxacin [Levaquin] 750 mg PO DAILY #5 tablet 05/11/17 [Rx] Patient Handouts: Rhabdomyolysis, Levofloxacin tablets, Aspirin, ASA oral tablets Forms: ED Department Discharge Referrals: [facility] [Outside] (To obtain hospital follow-up appointment with PCP ,in 1 week.) Melissa Olivera MD [Physician] - (follow-up in 1 week ) PCP,None [Primary Care Provider] - - Discharge Summary/Plan Comment DC Time >30 min.: Yes Discharge Summary/Plan Comment: 61-year-old male admitted 05/09/17 for altered mental status found to have rhabdomyolysis and leukocytosis with no significant past medical history. Patient intially was brought to the ED by coworkers that stated that he was disorientated on the morning of admission and did not even know his own name. They state that he had seemed confused for the last 2 days and then had missed a day of work. Initially in the ED he was not oriented to place or time. He also did not remember missing a day of work. When questioned he reported that for the past 2 days his friends had been telling him that he was having memory issues and showing signs of confusion. He lives in [place] and has drove up to [place] to work at an [employer] for the past few days. The last few days he has been getting minimal sleep and its been a taxing job for him with long hours. He was unaware of what may be causing his confusion and reported that nothing like this had happened before to him. In the ED he was complaining of left shoulder pain and was found to have a posterior dislocation which was reduced. Patient reported that he had left shoulder pain for over 6 months but didn't realize it was dislocated. The patient also had an obviously red and irritated left eye. When asked about this , he was unaware of how this may have happened. He denied any blurry vision or pain. There was a small abrasion under the eye as well. CT of the head 05/09/17 was normal and he was found to have increased CRP at 9.54 , AST 118, ALT 61, bili 1.9, and WBC 13.05. TSH was normal. UA showed trace ketones, small bilirubin, urine tox was negative. CK was elevated at 5412. CXR did show left lobe atelectasis vs infiltrate so patient was treated with IV Levquin for possible community acquired pneumonia. Patient was admitted and treated with aggressive IVF resus for his rhabdomyolysis which was most likely secondary to his left shoulder dislocation and dehydration. In addition he received Levaquin for suspected community- acquired pneumonia. His altered mental status improved with IV fluid hydration. Neurology, Dr. Olivera, was counseled and saw the patient and believed that the altered mental status was most likely infectious/toxic/metabolic. During his stay MRI of the brain showed no acute ischemia but 5 small old right inferior cerebellar infarcts and one small left inferior cerebellar infarct. There was also some moderate right maxillary sinus mucosal thickening. Secondary to the above findings carotid ultrasound as well as echocardiogram were performed but results weren't available at time of dictation. Patient did well throughout his stay and showed no more signs of altered mental status. His rhabdomyolysis improved with aggressive IV fluid resuscitation. The patient adamantly wished to be discharged on his third day of admission and was thus discharged in good condition with scheduled follow-ups with Dr. Olivera, neurologist, and local primary care physician. Was given a prescription for Levaquin for continued seven-day coverage for community-acquired pneumonia as well as daily 81 mg aspirin. He was instructed to return to the emergency department if he had any return of his altered mental status. - Patient Data Vitals - Most Recent: Last Vital Signs Temp 99 F 05/11/17 04:00 Pulse 80 05/11/17 04:00 Resp 16 05/11/17 04:00 BP 144/78 H 05/11/17 04:00 Pulse Ox 96 05/11/17 04:00 Weight - Most Recent: 102.058 kg I&O - Last 24 hours: Intake & Output 05/10/17 05/10/17 05/11/17 14:59 22:59 06:59 Intake Total 4644 4755 Output Total 2700 Balance 4644 2055 Lab Results - Last 24 hrs: Laboratory Results - last 24 hr 05/10/17 05/10/17 05/11/17 Range/Units 08:51 14:58 03:05 Creatine Kinase 2904 H 2129 H 1748 H (9-236) IU/L Med Orders - Current: Current Medications Acetaminophen (Tylenol) 650 mg PO Q4H PRN PRN Reason: pain Last Admin: 05/10/17 21:53 Dose: 650 mg Hydrocodone Bitart/Acetaminophen ([place]y 325-5 Mg) 1 tab PO Q4H PRN PRN Reason: severe pain Heparin Sodium (Porcine) (Heparin Sodium) 5,000 units SUBCUT Q8H [facility] Last Admin: 05/11/17 02:17 Dose: 5,000 units Levofloxacin/Dextrose 750 mg/ (Premix) 150 mls @ 100 mls/hr IV Q24H [facility] Last Admin: 05/10/17 15:46 Dose: 100 mls/hr Sodium Chloride (Normal Saline) 1,000 mls @ 250 mls/hr IV ASDIRECTED [facility] Last Admin: 05/11/17 04:02 Dose: 250 mls/hr Methylphenidate 10mg 1 each PO TID [facility] Last Admin: 05/11/17 05:16 Dose: Not Given Sodium Chloride (Saline Flush) 10 ml FLUSH ASDIRECTED PRN PRN Reason: Keep Vein Open Last Admin: 05/09/17 10:57 Dose: 10 ml Sodium Chloride (Saline Flush) 2.5 ml FLUSH ASDIRECTED PRN PRN Reason: Keep Vein Open Last Admin: 05/09/17 10:57 Dose: 2.5 ml Sodium Chloride (Saline Flush) 10 ml FLUSH ASDIRECTED PRN PRN Reason: Keep Vein Open Sodium Chloride (Saline Flush) 2.5 ml FLUSH ASDIRECTED PRN PRN Reason: Keep Vein Open Zaleplon (Sonata) 10 mg PO BEDTIME PRN PRN Reason: Insomnia Last Admin: 05/10/17 21:42 Dose: 10 mg Discontinued Medications Aspirin (Aspirin) 325 mg PO ONETIME ONE Stop: 05/09/17 10:25 Last Admin: 05/09/17 10:57 Dose: 325 mg Calcium Carbonate/Glycine (Tums) 1,000 mg PO ONETIME ONE Stop: 05/10/17 07:16 Last Admin: 05/10/17 08:07 Dose: 1,000 mg Gadobenate Dimeglumine (Multihance) 20 ml IVPUSH ONETIME STA Stop: 05/09/17 21:20 Last Admin: 05/09/17 21:20 Dose: 14 ml Sodium Chloride (Normal Saline) 1,000 mls @ 250 mls/hr IV NOW STA Stop: 05/09/17 14:23 Last Admin: 05/09/17 19:06 Dose: 999 mls/hr Sodium Chloride (Normal Saline) 250 mls @ 250 mls/hr IV ASDIRECTED BE Last Admin: 05/09/17 15:13 Dose: 250 mls/hr Sodium Chloride (Normal Saline) 1,000 mls @ 250 mls/hr IV ASDIRECTED BE Lorazepam (Ativan) 1 mg PO ONETIME ONE Stop: 05/09/17 18:05 Last Admin: 05/09/17 19:14 Dose: 1 mg *Q Meaningful Use (DIS) - VTE *Q VTE Criteria *Q: - Stroke *Q Stroke Criteria *Q: - AMI *Q AMI Criteria *Q:
--- NOTE | 2017-05-12 15:36 | US ---
EXAM DATE: 05/09/17 PATIENT'S AGE: 61 Patient: XIMENA MARIE Facility: [place], [place] Site . Site : 1955 Study: US Abdomen [id number] 4:28:27 PM Ordering Physician: Stanley Payne Final Report: INDICATION: Right upper quadrant pain. TECHNIQUE: Transabdominal imaging. COMPARISON: None available. FINDINGS: Pancreas is poorly visualized. The liver is diffusely increased in echogenicity likely related to fatty infiltration. Hepatopetal flow is demonstrated in the main portal vein. No discrete intrahepatic lesion or mass is identified. No intrahepatic or extrahepatic bile duct dilatation. The CBD is normal in caliber measuring 4 mm. The gallbladder is not visualized. This is consistent with the patient`s history of a prior cholecystectomy. The right kidney is grossly unremarkable. No free fluid in the right upper quadrant. IMPRESSION: 1. Increased echogenicity of the liver parenchyma, likely related to fatty infiltration. 2. Status post cholecystectomy. 3. Suboptimal visualization of pancreas, presumably related to bowel gas. Dictated by Mazin Palmer MD @ May 09 2017 9:13PM (Electronic Signature) Report Signed by Proxy. DELIA
--- NOTE | 2017-05-12 16:12 | MR ---
EXAM DATE: 05/09/17 PATIENT'S AGE: 61 Patient: XIMENA MARIE Facility: [place], [place] Site . Site : 1955 Study: MRI Head W/ and W/O Cont [id number]/19/2018 9:30:05 PM Ordering Physician: Stanley Payne Final Report: EXAMINATION: MRI BRAIN WITH AND WITHOUT CONTRAST DATE: 05/09/2017. HISTORY: Patient with confusion. TECHNIQUE: Multi-sequence, multiplanar MRI examination of the brain with and without contrast was performed. COMPARISON: Head CT earlier the same day. FINDINGS: There is no restricted diffusion in the brain to indicate the presence of ischemia. There are mild scattered foci of T2/FLAIR signal hyperintensity in the periventricular and subcortical white matter, likely related to microangiopathic changes. There are five small old right inferior cerebellar infarctions and one small left inferior cerebellar infarction. The ventricular size is normal for age. There is no abnormal enhancement in the brain. There is moderate mucosal thickening in the right maxillary sinus. The orbits are unremarkable. The mastoid air cells are clear. The calvarium is unremarkable. IMPRESSION: 1. No acute ischemia in the brain. 2. 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 Evaluation of the cervical vasculature as well as cardiac evaluation is recommended to assess for an embolic source. 3. Moderate right maxillary sinus mucosal thickening. Mckenna Connolly M.D. Neurointerventionalist [facility] [employer], [place] Pager: Office/Appointments: Answering Service: [facility]: [email or web address] Dictated by: Mckenna Connolly MD @ 05/10/2017 00:01:07 (Electronic Signature) Report Signed by Proxy. [facility]ITAL[facility]
--- NOTE | 2017-05-12 17:16 | US ---
EXAM DATE: 05/09/17 PATIENT'S AGE: 61 Patient: XIMENA MARIE Facility: [facility], [place], [place] Site . Site : 1955 Study: US Neck Angio Arterial [id number]/10/2017 10:59:01 AM Ordering Physician: Stanley Payne Final Report: INDICATION: ALTERED MENTAL STATUS HISTORY: Altered mental status. Evaluate for carotid stenosis. COMPARISON: None. TECHNIQUE: Bilateral carotid ultrasound with Doppler. 2D, color, and spectral Doppler interrogation was obtained. FINDINGS: Left: Grayscale imaging of the left carotid system demonstrates no significant atherosclerotic plaque. There is no significant ECA, CCA, or ICA stenosis. Highest peak systolic velocity in the left ICA is 67 cm/sec, and highest end- diastolic velocity is 25 cm/sec. Left vertebral artery was not visualized sonographically. This could be secondary to prior occlusion, or the vessel may be hypoplastic. Right: Grayscale imaging of the right carotid system demonstrates no significant atherosclerotic plaque. Doppler evaluation demonstrates no significant CCA, ECA , or ICA stenosis. Highest peak systolic velocity in the right ICA is 72 cm/sec , and highest end-diastolic velocity is 32 cm/sec. Antegrade flow in the right vertebral artery. IMPRESSION: 1. There is no hemodynamically significant stenosis in either internal carotid artery, by ultrasound-based velocity criteria. 2. Left vertebral artery was not visualized. Right vertebral artery demonstrates antegrade flow. Dictated by Jeffrey Pierre MD @ 05/10/2017 3:09:29 PM Dictated by: Jeffrey Pierre MD @ 05/10/2017 15:09:44 (Electronic Signature) Report Signed by Proxy. DELIA
--- NOTE | 2017-05-15 12:41 | ECHO ---
The echocardiogram report can be seen in this patient's EMR (electronic medical record) in the Reports section. The report has also been scanned into PACS and can be seen there. DELIA
== END 2017-05-11 14:00 | disposition home or self-care (01) ==
LOC: MW.ED 10:19 → MW.MS 12:10 → MW.ED 12:34 → MW.MS 12:55
PROVIDERS: ADMIT Family Medicine; ATTEND Family Medicine
DX: T79.6XXA Traumatic ischemia of muscle, initial encounter (principal); S43.005A Unspecified dislocation of left shoulder joint, initial encounter; D72.829 Elevated white blood cell count, unspecified; J18.1 Lobar pneumonia, unspecified organism; F17.200 Nicotine dependence, unspecified, uncomplicated; E87.1 Hypo-osmolality and hyponatremia; R94.5 Abnormal results of liver function studies; R74.8 Abnormal levels of other serum enzymes; R82.4 Acetonuria; J45.909 Unspecified asthma, uncomplicated; G47.30 Sleep apnea, unspecified; Z79.82 Long term (current) use of aspirin
CPT/HCPCS: 36415; 70450; 70552; 71045; 73030; 76705; 80048; 80053; 80305; 81001; 82140; 82550; 82553; 82962; 84443; 84484; 85025; 85610; 85652; 85730; 86140; 93005; 93306; 93880; 96360; 96361; 99285; A9270; A9577; G0480; J1644; J1956; J7040; J7050; 80074; 96365; 96366; 96372; G0378